=== PATIENT | female | born 1945 | race Caucasian/White ===

== ENCOUNTER → 2017-02-05 | Day surgery (SDC) | payer MEDICARE ==
[~2017-02-05] MED LIST: BUPIVACAINE HCL PF 0.5% 10 ML VIAL ONE; KETOROLAC TROMETHAMINE 30 MG/ML (IVP) VIAL ONE; LACTATED RINGER'S 1000 ML INJ 1,000 ML ONE; MIDAZOLAM HCL 2 MG/2 ML VIAL ONE; ONDANSETRON HCL 4 MG/2 ML VIAL IV PUSH ONE; PROPOFOL 100 MG/10 ML INJ IV ONE; ceFAZolin 2 GM PREMIX 50 ML ONE
--- NOTE | 2017-02-05 13:07 | TN ---
cc: MARCELINA MONDRAGON DATE OF SURGERY: 02/05/2017 PRINCIPAL DIAGNOSIS Ductal carcinoma in situ of the right breast. PROCEDURE PERFORMED Right breast needle-localized lumpectomy. SURGEON Marcelina Mondragon MD ANESTHESIA General via LMA device. INDICATION The patient is a 71-year-old female with newly diagnosed ductal carcinoma in situ of the right breast. She has opted for breast conservation and now presents for the procedure. FINDINGS AT THE TIME OF SURGERY Specimen mammogram did demonstrate an intact wire and the biopsy clip and calcifications were in the specimen. PROCEDURE PERFORMED After informed consent was obtained and site verification was performed, the patient was brought to the radiology suite where she underwent needle localization of her prior biopsy site. She was then brought to the major operating room where she underwent general anesthesia via LMA device. She was given a single dose of IV Ancef and sequential compression hose were placed. The right breast was prepped and draped in sterile fashion. A 2 cm radial incision at 9 o'clock was anesthetized and incised sharply. Further sharp dissection was performed until the wire entry point through the skin was identified and secured with a hemostat. The wire was cut off at the skin with pin cutters and a 2-0 Silk transfixion suture was placed at the wire entry point into the breast tissue. Sharp circumferential dissection was performed down beyond the tip of the wire and the specimen was oriented with two sutures laterally, one long suture anteriorly, and one short suture superiorly. Inspection of the specimen did demonstrate that the anterior and inferior margins appeared close and each of these was sharply reexcised with a stitch on the new margin. Hemostasis was easily obtained with electrocautery and the wound was closed using interrupted 3-0 Vicryl subcutaneous sutures and a 4-0 Monocryl subcuticular suture. Steri-Strips and sterile dressings were applied. The patient tolerated the procedure well with an estimated blood loss of 30 ccs and she was extubated in the operating room and brought to recovery room in good condition. All sponge and needle counts were correct at the conclusion of the case. MD ZOEY Blair/MOLLY /12:39 PM /12:50 PM
== END | disposition home or self-care (01) ==
LOC: ESDC 08:25
PROVIDERS: ATTEND Surgery
DX: D05.11 Intraductal carcinoma in situ of right breast (principal)
CPT/HCPCS: 00400; 19125; 88307; J0690; J1885; J2250; J2405; J3010; J7120